=== PATIENT | female | born 2000 | race Caucasian/White ===

== ENCOUNTER 2021-11-04 12:02 | Emergency (ER) | payer OTHER ==
[2021-11-04 12:45] LABS: BILIRUBIN NEGATIVE (NEGATIVE); BLOOD NEGATIVE Ery/uL (NEGATIVE); CLARITY CLEAR (CLEAR); COLOR YELLOW (YELLOW); GLUCOSE (U) NORMAL (NORMAL); LEUKOCYTES TRACE Leu/uL (NEGATIVE); NITRITE NEGATIVE (NEGATIVE); PROTEIN NEGATIVE (NEGATIVE); UROBILINOGEN 0.2 mg/dL (0.2-1.0)
[2021-11-04 13:04] LABS: BACTERIA 2+; MUCOUS MODERATE; URINARY WBC RARE
[2021-11-04 13:19] LABS: BASOPHIL 0.4 % (0-2); HCT 36.7 % (37.0-47.0); HGB 12.5 g/dl (12.5-16.0); LYMPHOCYTE 32.4 % (15-48); MCH 29.1 pg (25.0-31.0); MCHC 34.1 g/dL (32.0-36.0); MCV 85.5 fL (78.0-100.0); MONOCYTE 6.1 % (0-12); MPV 9.7 fL (6.0-9.5); NEUTROPHIL 59.9 % (41-80); NRBC 0; PLT 243 K/uL (150-400); RBC 4.29 M/uL (4.20-5.40); WBC 4.9 K/uL (4.0-10.5)
== END 2021-11-04 15:00 | disposition home or self-care (01) ==
LOC: FER 12:02
PROVIDERS: Emergency Medicine
DX: O99.891 Other specified diseases and conditions complicating pregnancy (principal); R10.32 Left lower quadrant pain; Z3A.11 11 weeks gestation of pregnancy; Z28.310 Unvaccinated for COVID-19; Z88.0 Allergy status to penicillin
CPT/HCPCS: 36415; 81001; 84702; 85025; 99284

== ENCOUNTER 2022-02-06 16:14 | Emergency (ER) | payer OTHER | END 2022-02-06 20:17 | disposition home or self-care (01) | LOC: FER 16:14 | DX: K59.00 Constipation, unspecified (principal); Z28.310 Unvaccinated for COVID-19 | CPT/HCPCS: 99283 ==